=== PATIENT | male | born 1950 | race Caucasian/White ===

== ENCOUNTER 2017-08-27 07:15 | Inpatient (IN) ==
[2017-08-27] MEDS ORDERED: Bisacodyl 10 MG Supp RECTAL PRN (09:00)
[2017-08-27] MEDS ORDERED: ceFAZolin 2 GM Premix Inj 2 GM/50 ML PIGGYBACK IV.SIG SCH (09:10)
[2017-08-27] MEDS ORDERED: Chlorhexidine Gluconate 2% 1 Pack (2 Cloths) TOPICAL SCH (09:15)
[2017-08-27] MEDS ORDERED: Metoprolol Tartrate 25 MG Tablet PO SCH (09:15)
[2017-08-27] MEDS ORDERED: Chlorhexidine 4% Topical 120 APPLIC/120 ML Bottle TOPICAL SCH (09:15)
[2017-08-27] MEDS ORDERED: Bupivacaine/Dextrose 0.75% Inj 2 ML Ampul ONE (09:56)
[2017-08-27] MEDS ORDERED: Sodium Chlor 0.9% Inj 500 ML IV.SIG SCH (10:00)
[2017-08-27] MEDS ORDERED: Sodium Chlor 0.9% Inj 40 ML, Bupivacaine Liposo PF 1.3% Inj 20 ML P-ARTICULR SCH ×2 (11:00)
[2017-08-27] MEDS ORDERED: TRANEXAMIC ACID IV.SIG SCH ×2 (11:00→14:00)
[2017-08-27] MEDS ORDERED: SODIUM CHLOR 0.9% IV.SIG SCH ×2 (11:00→14:00)
[2017-08-27] MEDS ORDERED: Sodium Chlor 0.9% Inj 250 ML IV.SIG ONE (12:00)
[2017-08-27] MEDS ORDERED: Phenylephrine/NS 1000 MCG/10ML Syringe IV.PUSH ONE (12:00)
[2017-08-27] MEDS ORDERED: Lidocaine PF 1% Inj 5 ML Syringe INFILTRATN ONE (12:00)
[2017-08-27] MEDS ORDERED: Aluminum/Magnesium/Simethacone Susp 30 ML UDC PO PRN (12:53)
[2017-08-27] MEDS ORDERED: Morphine Inj 4 MG/ML Vial IV.PUSH PRN (12:53)
[2017-08-27] MEDS ORDERED: Tranexamic Acid Inj 0 MG in Sodium Chlor 0.9% Inj 100 ML IV.SIG ONE (12:53)
[2017-08-27] MEDS ORDERED: Acetaminophen 325 MG Tablet PO PRN (12:53)
--- NOTE | 2017-08-27 13:02 | P.OP ---
- Preoperative Diagnosis (1) Primary osteoarthritis of left hip - Postoperative Diagnosis (1) Primary osteoarthritis of left hip Date of procedure: 08/27/17 Procedure: Left total hip arthroplasty using [place] prosthesis Anesthesia: local (Exparel), spinal Surgeon: Donn Jaime MD Jammer Operator: ROSSY Dumont Estimated blood loss (mL): 150 Pathology: none sent Operation and Findings: Indications and Findings: This 66-year-old man has a 3-4 year history of left hip pain progressively worsening over the last year or. His ambulation tolerance is 100 yards. He has difficulty lying on the side. He has difficulty moving the hip. He has difficulty with activities of daily living. He has not responded to conservative measures including anti-inflammatory agents , analgesics, exercises, physical therapy and ambulatory aids. Physical findings showed limited range of motion in his left hip with tenderness on motion. He had an antalgic gait. X-rays showed loss of articular cartilage to [id number] with large osteophytes in the acetabulum and femoral head. There is eburnation. There is large prominence on the lateral aspect of the femoral head consistent with femoral acetabular impingement. Operative findings: There was severe osteoarthritis in the left hip with loss of articular cartilage to [id number], flattening of the femoral head, eburnation in the femur and acetabulum and significant osteophytes in both. Implants: The acetabular component was a 52 mm outer diameter Tritanium cluster shell with a 0 X3 polyethylene, 36 mm inner diameter liner. The femoral component was an Accolade 2 size 4 x 127 neck angle. The femoral head was Biolox Delta size 36 mm outer diameter by -5 mm neck length. The patient was brought to the clean air operating suite and a spinal anesthetic was administered. The patient was positioned into a lateral position with the operative hip up on a [employer]et lateral positioner. The hip and lower extremity were prepped with alcohol, Hibiclens and ChloraPrep and draped in the usual manner with the hip draped free. Patient received prophylactic antibiotics preoperatively. The patient also received tranexamic acid preoperatively. An appropriate timeout procedure was carried out. An incision was made from the midportion of the greater trochanter proximally and posteriorly paralleling the fibers of the gluteus anahi. The incision was deepened through subcutaneous tissues down to the fascia lexii and gluteus fascia. The gluteus fascia was then split longitudinally in line with its fibers up to the upper portion of the fascia lexii. With wound towels in place, the Charnley retractor was inserted. The sciatic nerve was identified and protected throughout the procedure. Dissection was then carried down to the interval between the gluteus minimus and the piriformis. A retractor was inserted. The piriformis and obturator conjoined tendon was released from the greater trochanter and reflected off the capsule. A capsulotomy was made longitudinally along the femoral neck to the base of the femoral neck and then curved distally along the posterior aspect of the greater trochanter. The hip was internally rotated. Further release of the external rotators was carried out exposing the hip. The hip was dislocated. The femoral neck was transected at the appropriate level using the oscillating saw placement of appropriate retractors. The femoral head was removed. Preparation of the femur was initiated with a box osteotome followed by a curet to identify the medullary canal. Broaching was then initiated with the size 0 broach and went in 1 size increments up to size 4. The broach handle was removed. The femoral neck was then trimmed with a calcar planar. Attention was then directed to the acetabulum. Soft tissues were debrided from the acetabulum. Retractors were placed about the acetabulum. Reaming was then initiated with the 45 millimeter reamer and went in 1-2 mm increments up to the 52 millimeter diameter reamer. A trial reduction with the 50 to millimeter trial prosthesis was carried out. When this was deemed to be appropriate, the trial prosthesis was removed. The acetabulum was irrigated and cleaned. The actual prosthesis as noted above was impacted into place and seated appropriately. Drill holes were made and sounded. Appropriate sized screws were inserted to stabilize the acetabulum further. The liner as noted above was inserted into the acetabular shell and impacted into place. Osteophytes were trimmed from the acetabulum. Local anesthetic was administered throughout the area of the acetabulum and anterior aspect of the femur. The trial neck was placed on the broach for the above-noted prosthesis. The femoral head trial was placed onto the femoral neck . A trial reduction was carried out. Adjustment was made as needed. The stability, leg length and motion were excellent. There was no pistoning. The trial prosthesis was removed. The broach was removed. The femoral component was impacted into the medullary canal of the femur after irrigation and suctioning. When this was appropriately seated a trial reduction was again carried out with the trial prosthesis. There was no pistoning. The leg length was appropriate. The stability and motion were excellent. The trial prosthesis was then removed. After cleaning and drying the trunion of the femoral component, the above-noted femoral head was impacted onto the trunnion. The hip was reduced. The stability and mobility were again checked along with leg lengths as noted above. The hip was positioned appropriately and closure commenced after the remainder of the local anesthetic was injected throughout the hip. The external rotators and capsule were repaired with #1 Vicryl interrupted transosseous sutures with a Krakw technique to reattach the external rotators and capsule to the posterior aspect of the greater trochanter. The capsule itself on the superior aspect was closed with #1 Vicryl interrupted [id number] sutures. The sciatic nerve was inspected. The fascia lexii and gluteus fascia were repaired with #1 Vicryl interrupted [id number] sutures. The subcutaneous tissues were closed with 2-0 Vicryl interrupted simple sutures with buried knots. The skin was closed with a continuous subcuticular closure of 4-0 Monocryl. The wound was then approximated with Dermabond Prineo. A dry sterile dressing was applied to the hip. A knee immobilizer was applied to the leg. The patient was transferred from the operating room to the recovery room in satisfactory condition having tolerated the procedure well. Counts are correct. Specimens: None. Estimated blood loss: 150 mL
--- NOTE | 2017-08-27 13:05 | P.DCO ---
- Physical Therapy Physical Therapy: Gait training Hip: Total hip, Protocol: Left, Posterior hip precautions, Progress to weight bearing Canvas Knee Splint: When in bed with 2 pillows between thighs Left Lower Extremity Weight Bearing: Weight bearing as tolerated Left Lower Extremity Range of Motion: Active ROM - Nursing Nursing: Dressing changes Dressing changes: Daily dressing change, Coverderm/Primapore Additional instructions: Do not remove Dermabond Prineo. - Certification Need for Home Health services: I have seen patient Titus Richmond on 08/27/17. My clinical findings support the need for the requested home health care services because: Need for Home Health Services: Limited ability to care for self, High risk of falls Homebound Certification: I certify that my clinical findings support that this patient is homebound because: Homebound Certification: Post-op weakness, Unsteady gait/balance, Unsafe to leave home unassisted
[2017-08-27] MEDS ORDERED: Post-op Orders (for Pharmacy) OTHER STA (13:17)
--- NOTE | 2017-08-27 15:14 | XR ---
EXAM DATE: 08/27/2017 1:57 PM EDT AGE/SEX: 66 years / Male INDICATIONS: Post-op total left hip arthroplasty. CLINICAL DATA: This is the patient's initial encounter. Patient reports that signs and symptoms have been present for 1 day and indicates a pain score of 2/10. MEDICAL/SURGICAL HISTORY: None. Discectomy, lumbar. COMPARISON: POI, XR HIP AP AND LAT, LEFT, 06/05/2017. . FINDINGS: The patient is status post left total knee arthroplasty with prosthesis in good position. No acute fr acture or dislocation is noted. Mild degenerative changes and scoliosis of the lower lumbar spine are noted. CONCLUSION: 1. Status post left total knee arthroplasty with prosthesis in good position. 2. Mild degenerative changes and scoliosis of the lumbar spine. Electronically signed by: Herbert Garnett MD 08/27/2017 3:12 PM EDT
[2017-08-27] MEDS ORDERED: *morphine SULFATE 4 MG/ML PERIprocedure ONLY ONE (15:40)
[2017-08-27] MEDS: Ketorolac Inj 30 MG/ML (IVP) Vial IV.PUSH SCH ×2 (15:46→21:10)
--- NOTE | 2017-08-27 16:39 | P.CONIM ---
History of Present Illness Service: Orthopedic surgery Consult date: 08/27/17 Primary Care Provider: Dev Holly MD Family Provider: Dev Holly MD Chief Complaint: Medical management History of Present Illness: Mr. Richmond is a 66 yo M patient of Dr. Jaime with PMH of osteoarthritis, hyperthyroidism, and B12 deficiency who underwent L total hip arthroscopy today. Internal medicine consulted for medical management post-operatively. Patient states that he is doing well post-operatively. He denies excessive pain. No chest pain, shortness of breath, nausea/vomiting, or abdominal pain reported. Per nursing staff at bedside, no current concerns. Patient states that prior to surgery he was doing well without fever/chills, cough, abnormal urination, or other concerns. He states that he does have occasional palpitations chronically at home. No known history of arrhythmia. Patient states that he takes beta-sergio and thyroid medication [Metoprolol and Methimazole per EMR] for hyperthyroidism and B12 shots monthly but is otherwise healthy. He states He reports distant surgical history of discectomy. Patient reports prior smoking (quit 4 years ago) but denies history of Pulmonary disease. Patient does not report any familial or personal clotting disorder history. Review of Systems All other systems reviewed negative except as stated in HPI Constitutional: Denies fatigue, Denies headache(s) Eyes: Denies blurry vision, Denies pain Cardiovascular: Denies chest pain, Denies excessive sweating Respiratory: Denies shortness of breath, Denies wheezing Gastrointestinal: Denies abdominal pain, Denies constipation Musculoskeletal: Denies abnormal walking, Denies body aches Neurologic: Denies localized weakness, Denies tingling/numbness/burning sensations PMFSH - History History Provided By: Patient, Significant Other - Medical History Medical History: Medical History (Last Updated 08/27/17 @ 08:08 by Candy Green) Right inguinal hernia High cholesterol Hyperthyroidism Pain in left hip Pain in left knee Wears glasses - Surgical History Surgical History: Surgical History (Last Updated 08/27/17 @ 08:08 by Candy Green) Hx of laminectomy Hx of left inguinal hernia repair Hx of tonsillectomy - Tobacco History Smoking Status: Former smoker - Alcohol History How Often Do You Have a Drink Containing Alcohol: Monthly or less - Substance Use History Substance History: No History of Abuse - Travel History Recent Travel in the [facility] Within the Last 8 Weeks: No Recent Travel Out of the Country Within the Last 8 Weeks: No Medications and Allergies Active Medications: Active Medications Acetaminophen (Tylenol) 650 mg PO Q6H PRN PRN Reason: Pain Less Than 3 On Scale Hydrocodone Bitart/Acetaminophen ([place] 7.5/325) 1 tab PO Q4H PRN PRN Reason: PAIN SCALE 4 TO 6 MODERATE Hydrocodone Bitart/Acetaminophen ([place] 7.5/325) 2 tab PO Q6H PRN PRN Reason: PAIN SCALE 7 TO 10 SEVERE Al Hydrox/Mg Hydrox/Simethicone (Mag-Al Plus Susp Liq) 30 ml PO Q6H PRN PRN Reason: INDIGESTION Al Hydroxide/Mg Hydroxide (Milk Of Magnesia Liq) 30 ml PO BID PRN PRN Reason: Mild Constipation Aspirin (Aspirin Chew) 81 mg PO BID KIM Bisacodyl (Dulcolax Supp) 10 mg RECTAL DAILY PRN PRN Reason: SEVERE CONSITIPATION Chlorhexidine Gluconate (Chlorhexidine 2% Cloth) 3 pack TOPICAL ANIMAL SCIENTIST [facility] Stop: 08/30/17 09:02 Last Admin: 08/27/17 07:30 Dose: 3 pack Chlorhexidine Gluconate (Hibiclens 4% Topical) 1 applicatio TOPICAL ONCE [facility] Stop: 08/31/17 09:14 Last Admin: 08/27/17 07:45 Dose: 1 applicatio Sodium Chloride 40 ml/ (Bupivacaine Liposome 20 ml) 0 ml P-ARTICULR ONCE [facility] Stop: 08/27/17 17:00 Last Admin: 08/27/17 10:47 Dose: 1 bag Cyanocobalamin (Vitamin B12 Inj) 1,000 mcg IM Q30D [facility] Diphenhydramine HCl (Benadryl) 25 mg PO Q6H PRN PRN Reason: ITCHING Lactated Ringer's (Lr 1000 Ml Inj) 1,000 mls @ 30 mls/hr IV.SIG .Q24H [facility] Stop: 08/30/17 09:02 Last Admin: 08/27/17 08:00 Dose: 30 mls/hr Sodium Chloride (Ns Inj) 500 mls @ 30 mls/hr IV.SIG .Q10H [facility] Stop: 08/30/17 09:02 Cefazolin Sodium/Dextrose (Ancef 2 Gm Premix Inj) 2 gm in 50 mls @ 100 mls/hr IV.SIG ANIMAL SCIENTIST [facility] Stop: 08/31/17 09:09 Last Infusion: 08/27/17 11:17 Dose: Infused Tranexamic Acid 754 mg/ Sodium (Chloride) 107.54 mls @ 200 mls/hr IV.SIG ONCE [facility] Stop: 08/27/17 19:59 Last Admin: 08/27/17 14:06 Dose: 200 mls/hr Tranexamic Acid 754 mg/ Sodium (Chloride) 107.54 mls @ 200 mls/hr IV.SIG ONCE [facility] Stop: 08/27/17 16:59 Last Infusion: 08/27/17 11:20 Dose: Infused Cefazolin Sodium/Dextrose (Ancef 2 Gm Premix Inj) 2 gm in 50 mls @ 100 mls/hr IV.SIG Q6H [facility] Stop: 08/28/17 05:29 Lactated Ringer's (Lr 1000 Ml Inj) 1,000 mls @ 80 mls/hr IV.CONT .[id number] [facility] Last Admin: 08/27/17 13:49 Dose: 80 mls/hr Ketorolac Tromethamine (Toradol Inj) 15 mg IV.PUSH Q6H [facility] Stop: 08/29/17 09:01 Last Admin: 08/27/17 15:46 Dose: 15 mg Lactulose (Lactulose Liq) 30 ml PO DAILY PRN PRN Reason: SEVERE CONSITIPATION Methimazole (Tapazole) 5 mg PO DAILY [facility] Metoprolol Tartrate (Lopressor) 25 mg PO ANIMAL SCIENTIST [facility] Stop: 08/30/17 09:02 Last Admin: 08/27/17 10:11 Dose: Not Given Metoprolol Tartrate (Lopressor) 25 mg PO BID [facility] Miscellaneous Information ([facility] Nursing Information) 1 each OTHER UNSCH PRN PRN Reason: SEE LABEL COMMENTS Stop: 08/28/17 13:13 Morphine Sulfate (Morphine Inj) 2 mg IV.PUSH Q3H PRN PRN Reason: BREAKTHROUGH PAIN Ondansetron HCl (Zofran Odt) 4 mg PO Q6H PRN PRN Reason: NAUSEA OR VOMITING Povidone Iodine (Betadine 5% Antisepsis Kit) 1 applicatio EACH NARE ANIMAL SCIENTIST [facility] Stop: 08/30/17 09:02 Last Admin: 08/27/17 08:00 Dose: 1 applicatio Pravastatin Sodium (Pravachol) 40 mg PO DAILY [facility] Senna/Docusate Sodium (Deepali-Colace) 1 tab PO BID [facility] Sennosides (Senokot) 17.2 mg PO BID PRN PRN Reason: Moderate Constipation Sodium Chloride (Ns Flush) 2 ml IV.FLUSH BID KIM Sodium Chloride (Ns Flush) 2 ml IV.FLUSH PRN PRN PRN Reason: FLUSH AFTER USING IV ACCESS Zolpidem Tartrate (Ambien) 5 mg PO HS PRN PRN Reason: INSOMNIA Allergies Allergy/AdvReac Type Severity Reaction Status Date / Time No Known Allergies Allergy Verified 08/27/17 08:55 Home Medications Medication Instructions Recorded Confirmed Type cyanocobalamin (vitamin B-12) 1,000 mcg IM QMONTH 08/16/17 08/27/17 History ibuprofen [Advil] 400 mg PO TID PRN 08/16/17 08/27/17 History methimazole 5 mg PO DAILY 08/16/17 08/27/17 History metoprolol tartrate 25 mg PO BID 08/16/17 08/27/17 History simvastatin 20 mg PO DAILY 08/16/17 08/27/17 History Exam Vital signs: Vital Signs 08/27/17 08:13 08/27/17 13:12 Temperature 99.1 F 96 F L Pulse Rate 62 62 Respiratory Rate 20 12 Blood Pressure 114/61 102/59 L Pulse Oximetry 98 100 Intake & Output 08/26/17 08/27/17 08/27/17 18:59 06:59 18:59 Intake Total 1557.54 / 1557.54 Output Total 150 / 150 Balance 1407.54 / 1407.54 Weight 75.4 kg Intake: IV 157.54 / 157.54 Cyklokapron Inj 754 MG In NS 107.54 / 107.54 Inj 100 ML @ 200 mls/hr IV.SIG ONCE [facility] Rx#:[id number] Ancef 2 GM Premix Inj 2 gm In 50 / 50 50 ml @ 100 mls/hr IV.SIG ANIMAL SCIENTIST [facility] Rx#:[id number] Anesthesia Amount 1400 / 1400 Output: Estimated Blood Loss 150 / 150 Other: Weight On Admission 75.4 kg Narrative: Gen: No acute distress HEENT: Eyes- EOMI. Mouth- normal mucus membranes Neck: No appreciated thyromegaly or lymphadenopathy CV: regular rate and rhythm; normal perfusion peripherally Pulm: CTAB; normal rate Abd: Soft, nontender Ext: Grossly normal ROM and strength of upper extremities; lower extremities not assessed for mobility due to recent surgery. No calf tenderness or asymmetry Neuro: grossly normal CN; grossly normal peripheral motor/sensory function Results - Labs Labs: Laboratory Results - last 24 hr 08/27/17 08:08 Blood Type A Negative Blood Type Recheck Required Antibody Screen Negative - Imaging Impressions Hip X-Ray 08/27/17 12:48 CONCLUSION: 1. Status post left total knee arthroplasty with prosthesis in good position. 2. Mild degenerative changes and scoliosis of the lumbar spine. Assessment and Plan - Plan Mr. Richmond is a 66 yo M with PMH hyperthyroidism and hyperlipidemia who is POD0 from left hip replacement per Dr. Jaime today: s/p left hip replacement Impression: patient doing well at this time -Post-op care per Dr. Jaime -OT/PT consulted- wheeled walker and HHC recommended -Will consult case management for HHC/wheeled walker assistance -DVT ppx-SCD's; chemical PPX >24hrs post-op -Regular diet, bowel regimemn -Will check post op Hgb/Hct and chemistry on IVF -Will give incentive spirometry -Pain control -PRN Morphine 2mg q3 for BRKP -Toradol 15mg IV q6hs scheduled -PRN [place] pain scale (7.5/15mg) PMH of thyroid disorder -Will continue home Methimazole -Will continue home Metoprolol Hyperlipidemia -Continue home statin, aspirin Reported palpitations at home -Will continue telemetry post-operatively DVT PPX SCD's as above <24hrs post op Code Status: Full
[2017-08-27] MEDS: ceFAZolin 2 GM Premix Inj 2 GM/50 ML PIGGYBACK IV.SIG SCH ×2 (16:55→22:42)
[2017-08-27] MEDS ORDERED: Zolpidem Tartrate 5 MG Tablet PO PRN (21:00)
[2017-08-27] MEDS: Metoprolol Tartrate 25 MG Tablet PO SCH (22:40)
[2017-08-27] MEDS: Senna/Docusate Sodium 8.6/50 MG Tablet PO SCH (22:40)
[2017-08-28] MEDS: Ketorolac Inj 30 MG/ML (IVP) Vial IV.PUSH SCH ×2 (03:43→09:13)
[2017-08-28] MEDS: ceFAZolin 2 GM Premix Inj 2 GM/50 ML PIGGYBACK IV.SIG SCH (04:05)
[2017-08-28 05:56] LABS: Baso % (Auto) 0.1 % (0.0-2.0); Hematocrit 33.5 % (39.0-51.0); Hemoglobin 11.8 gm/dL (13.0-17.0); Lymph % (Auto) 8.4 % (9.0-44.0); Mean Corpuscular HGB Conc 35.2 % (32.0-36.0); Mean Corpuscular Hemoglobin 30.1 pg (27.0-34.0); Mean Corpuscular Volume 85.5 fL (80.0-100.0); Mean Platelet Volume 7.1 fL (7.0-11.0); Mono # (Auto) 1.2 th/mm3 (0.0-0.9); Neut # (Auto) 9.6 th/mm3 (1.8-7.7); Neut % (Auto) 81.5 % (16.0-70.0); Platelet Count 251 th/mm3 (150-450); Red Blood Count 3.92 mil/mm3 (4.50-5.90); White Blood Count 11.8 th/mm3 (4.0-11.0)
[2017-08-28 06:21] LABS: Anion Gap 7 meq/L (5-15); Blood Urea Nitrogen 15 mg/dL (7-18); Calcium 8.2 mg/dL (8.5-10.1); Carbon Dioxide 27.2 meq/L (21.0-32.0); Chloride 108 meq/L (98-107); Glomerular Filtration Rate Greater Than 89 mL/min (>89); Glucose,Random 132 mg/dL (74-106); Potassium 3.9 meq/L (3.5-5.1); Sodium 142 meq/L (136-145)
--- NOTE | 2017-08-28 06:28 | P.PNOP ---
Subjective Interval history: Postop day #1 He is doing well. The had some vertigo when he stood with physical therapy so he did not walk. He was able to stand later with the nurses and tolerated it well. Physical Exam Vital signs: Vital Signs 08/27/17 08:13 08/27/17 13:12 08/27/17 13:15 Temperature 99.1 F 96 F L Pulse Rate 62 62 60 Respiratory Rate 20 12 12 Blood Pressure 114/61 102/59 L 101/50 L Pulse Oximetry 98 100 100 08/27/17 13:30 08/27/17 13:45 08/27/17 14:00 Temperature 96.2 F L Pulse Rate 54 L 54 L 53 L Respiratory Rate 12 12 12 Blood Pressure 94/50 L 94/55 L 96/51 L Pulse Oximetry 100 100 100 08/27/17 14:15 08/27/17 14:30 08/27/17 14:45 Temperature Pulse Rate 53 L 57 L 56 L Respiratory Rate 12 12 12 Blood Pressure 96/51 L 97/54 L 86/51 L Pulse Oximetry 100 99 100 08/27/17 15:00 08/27/17 15:15 08/27/17 15:30 Temperature 96.9 F L 97 F L Pulse Rate 62 63 67 Respiratory Rate 16 17 14 Blood Pressure 105/59 L 99/56 L 103/55 L Pulse Oximetry 97 96 95 08/27/17 16:00 08/27/17 17:00 08/27/17 18:00 Temperature 98 F Pulse Rate 73 86 84 Respiratory Rate 13 18 18 Blood Pressure 101/57 L 116/61 100/57 L Pulse Oximetry 96 96 96 08/27/17 21:40 08/27/17 22:30 08/27/17 22:45 Temperature 97.8 F Pulse Rate 77 85 Respiratory Rate 18 Blood Pressure 121/65 Pulse Oximetry 96 96 Intake & Output 08/27/17 08/27/17 08/28/17 06:59 18:59 06:59 Intake Total 1847.54 / 1847.54 1050 / 1050 Output Total 675 / 675 Balance 1172.54 / 1172.54 1050 / 1050 Weight 75.4 kg 75.4 kg Intake: IV 207.54 / 207.54 1050 / 1050 LR 1000 mL Inj 1,000 ML @ 80 1000 / 1000 mls/hr IV.CONT .[id number] KIM Rx# :[id number] Cyklokapron Inj 754 MG In NS 107.54 / 107.54 Inj 100 ML @ 200 mls/hr IV.SIG ONCE KIM Rx#:[id number] Ancef 2 GM Premix Inj 2 gm In 100 / 100 50 / 50 50 ml @ 100 mls/hr IV.SIG Q6H KIM Rx#:[id number] Oral 240 / 240 Anesthesia Amount 1400 / 1400 Output: Urine 525 / 525 Estimated Blood Loss 150 / 150 Other: Date of Last Bowel Movement 08/27/17 Weight On Admission 75.4 kg Narrative: He is resting comfortably, supine in bed. The neurovascular status is intact. The dressing is dry. Results - Labs CBC & Chem 7: 08/28/17 04:34 08/28/17 04:34 Laboratory Results - last 24 hr 08/27/17 08/28/17 08/28/17 08:08 04:34 04:34 WBC 11.8 H RBC 3.92 L Hgb 11.8 L Hct 33.5 L MCV 85.5 MCH 30.1 MCHC 35.2 RDW 13.0 Plt Count 251 MPV 7.1 Neut % (Auto) 81.5 H Lymph % (Auto) 8.4 L [place] % (Auto) 10.0 H Eos % (Auto) 0.0 Baso % (Auto) 0.1 Neut # (Auto) 9.6 H Lymph # (Auto) 1.0 [place] # (Auto) 1.2 H Eos # (Auto) 0.0 Baso # (Auto) 0.0 WBC Differential . Differential Comment Auto diff final Sodium 142 Potassium 3.9 Chloride 108 H Carbon Dioxide 27.2 Anion Gap 7 BUN 15 Creatinine 0.83 Estimated GFR Greater than 89 Random Glucose 132 H Calcium 8.2 L Blood Type A Negative Blood Type Recheck Required Antibody Screen Negative - Imaging Impressions Hip X-Ray 08/27/17 12:48 CONCLUSION: 1. Status post left total knee arthroplasty with prosthesis in good position. 2. Mild degenerative changes and scoliosis of the lumbar spine. Assessment and Plan - Ortho Post Op Day # 1 - Problem List (1) Status post total replacement of left hip Code(s): Z96.642 - Presence of left artificial hip joint Status: Acute Plan: Continue postop care and PT. - Assessment and Plan Condition: Good. Orthopedically stable. DVT prophylaxis: TEDs, aspirin, sequentials. Discharge plans: Home with home health care. An appointment was scheduled through the office. Prescriptions: [place] 7.5/325; Patient is having significant pain caused by a total hip replacement which will last more than 3 days. Trial of Tylenol has not helped. I believe that it is medically necessary to treat patients pain because it is affecting patients ability to participate in postoperative rehabilitation and perform activities of daily living in a comfortable and efficient manner.
[2017-08-28] MEDS ORDERED: methIMAzole 5 MG Tablet PO SCH (09:00)
[2017-08-28] MEDS: Metoprolol Tartrate 25 MG Tablet PO SCH (09:13)
[2017-08-28] MEDS: Senna/Docusate Sodium 8.6/50 MG Tablet PO SCH (09:13)
--- NOTE | 2017-08-28 10:25 | P.PNIM ---
Subjective Interval history: Mr. Richmond was afebrile with stable VS overnight. Patient seen at conclusion of PT visit today; patient has been doing well and has no longer been lightheaded when standing. Patient breathing well and using incentive spirometry. Patient has been passing gas but not yet had a bowel movement. Patient with normal appetite. Patient accompanied by ; he desires to go home today after PT/Ortho class this afternoon. Physical Exam Vital signs: Vital Signs 08/27/17 13:12 08/27/17 13:15 08/27/17 13:30 Temperature 96 F L Pulse Rate 62 60 54 L Respiratory Rate 12 12 12 Blood Pressure 102/59 L 101/50 L 94/50 L Pulse Oximetry 100 100 100 08/27/17 13:45 08/27/17 14:00 08/27/17 14:15 Temperature 96.2 F L Pulse Rate 54 L 53 L 53 L Respiratory Rate 12 12 12 Blood Pressure 94/55 L 96/51 L 96/51 L Pulse Oximetry 100 100 100 08/27/17 14:30 08/27/17 14:45 08/27/17 15:00 Temperature Pulse Rate 57 L 56 L 62 Respiratory Rate 12 12 16 Blood Pressure 97/54 L 86/51 L 105/59 L Pulse Oximetry 99 100 97 08/27/17 15:15 08/27/17 15:30 08/27/17 16:00 Temperature 96.9 F L 97 F L 98 F Pulse Rate 63 67 73 Respiratory Rate 17 14 13 Blood Pressure 99/56 L 103/55 L 101/57 L Pulse Oximetry 96 95 96 08/27/17 17:00 08/27/17 18:00 08/27/17 21:40 Temperature Pulse Rate 86 84 Respiratory Rate 18 18 Blood Pressure 116/61 100/57 L Pulse Oximetry 96 96 96 08/27/17 22:30 08/27/17 22:45 08/28/17 03:38 Temperature 97.8 F 98.2 F Pulse Rate 77 85 68 Respiratory Rate 18 18 Blood Pressure 121/65 118/59 L Pulse Oximetry 96 95 08/28/17 07:18 08/28/17 08:00 Temperature 99.4 F Pulse Rate 71 86 Respiratory Rate 18 Blood Pressure 114/59 L Pulse Oximetry 97 Intake & Output 08/27/17 08/28/17 08/28/17 18:59 06:59 18:59 Intake Total 1847.54 / 1847.54 1530 / 1530 Output Total 675 / 675 500 / 500 Balance 1172.54 / 1172.54 1030 / 1030 Weight 75.4 kg 75.4 kg Intake: IV 207.54 / 207.54 1050 / 1050 LR 1000 mL Inj 1,000 ML @ 80 1000 / 1000 mls/hr IV.CONT .[id number] KIM Rx# :[id number] Cyklokapron Inj 754 MG In NS 107.54 / 107.54 Inj 100 ML @ 200 mls/hr IV.SIG ONCE KIM Rx#:[id number] Ancef 2 GM Premix Inj 2 gm In 100 / 100 50 / 50 50 ml @ 100 mls/hr IV.SIG Q6H KIM Rx#:[id number] Oral 240 / 240 480 / 480 Anesthesia Amount 1400 / 1400 Output: Urine 525 / 525 500 / 500 Estimated Blood Loss 150 / 150 Other: Date of Last Bowel Movement 08/27/17 08/27/17 # Bowel Movements 0 Weight On Admission 75.4 kg Narrative: Gen: No acute distress, sitting in bedside chair HEENT: Eyes- EOMI. Mouth- normal mucus membranes Neck: No appreciated thyromegaly or lymphadenopathy CV: regular rate and rhythm; normal perfusion peripherally Pulm: CTAB; normal rate. Did well with incentive spirometry Abd: Soft, nontender Ext: Grossly normal ROM and strength of upper extremities. No calf tenderness or asymmetry Neuro: grossly normal CN; grossly normal peripheral motor/sensory function Results - Labs CBC & Chem 7: 08/28/17 04:34 08/28/17 04:34 Laboratory Results - last 24 hr 08/28/17 08/28/17 04:34 04:34 WBC 11.8 H RBC 3.92 L Hgb 11.8 L Hct 33.5 L MCV 85.5 MCH 30.1 MCHC 35.2 RDW 13.0 Plt Count 251 MPV 7.1 Neut % (Auto) 81.5 H Lymph % (Auto) 8.4 L [place] % (Auto) 10.0 H Eos % (Auto) 0.0 Baso % (Auto) 0.1 Neut # (Auto) 9.6 H Lymph # (Auto) 1.0 [place] # (Auto) 1.2 H Eos # (Auto) 0.0 Baso # (Auto) 0.0 WBC Differential . Differential Comment Auto diff final Sodium 142 Potassium 3.9 Chloride 108 H Carbon Dioxide 27.2 Anion Gap 7 BUN 15 Creatinine 0.83 Estimated GFR Greater than 89 Random Glucose 132 H Calcium 8.2 L - Imaging Impressions Hip X-Ray 08/27/17 12:48 CONCLUSION: 1. Status post left total knee arthroplasty with prosthesis in good position. 2. Mild degenerative changes and scoliosis of the lumbar spine. Assessment and Plan - Plan Mr. Richmond is a 66 yo M with PMH hyperthyroidism and hyperlipidemia who is POD1 from left hip replacement per Dr. Jaime: s/p left hip replacement Impression: patient doing well at this time. Labs: CBC- Hgb 11.8 post-operatively. Mild leukocytosis (11.8) suspected reactive from surgery. BMP with mild hyperglycemia (glucose 132); otherwise unremarkable -Post-op care per Dr. Jaime -OT/PT consulted- wheeled walker and C recommended -DVT ppx-SCD's; TEDs, ASA at discharge (restarted today) -Regular diet -Will give incentive spirometry -Pain control -[place] at discharge -f/u with Dr. Jaime H of thyroid disorder -Will continue home Methimazole -Will continue home Metoprolol Hyperlipidemia -Continue home statin, aspirin Code Status: Full code Discharge Planning: Plan for discharge this afternoon and f/u with PCP and Dr. Jaime
--- NOTE | 2017-08-29 07:46 | P.DS ---
Date of admission: 08/27/17 07:15 Primary care physician: Dev Holly MD Attending physician on discharge: Donn Jaime Anticipated date of discharge: 08/28/17 Brief History from admission: This 66-year-old man had long-standing arthritis in his left hip that was nonresponsive to conservative measures as detailed in history and physical examination. Physical findings showed limited range of motion with crepitation on motion and painful motion. He had an antalgic gait. X-rays showed loss of articular cartilage to [id number] with large acetabular and femoral head osteophytes and changes consistent with femoral acetabular impingement. DS: Diagnosis - Discharge Diagnosis (1) Status post total replacement of left hip Status: Acute (2) Primary osteoarthritis of left hip Status: Resolved DS: Medications - Discharge Medications Prescriptions: hydrocodone-acetaminophen 1 tab PO Q4H PRN 7 Days #42 tab PRN Reason: Pain DS: Summary Hospital Course: The patient was admitted as noted above. The above noted operative procedure was carried out that day. Preoperatively prophylactic antibiotics were administered Ancef according to protocol. These were continued postoperatively. The patient also received tranexamic acid to help with hemostasis according to protocol. In the postanesthesia care unit mechanical methods of DVT prophylaxis in the form of RADHA stockings and sequentials were initiated. Physical therapy was initiated on the day of surgery. On postoperative day #1 physical therapy continued. DVT prophylaxis with aspirin was initiated at this time. The patient continued physical therapy throughout the hospitalization. The distance walked and range of motion improved throughout the hospitalization. The patient was discharged on postoperative day 1 with the disposition being to home with home health care. An appointment for follow-up was made prior to admission. - Time Spent with Patient Total time spent providing and/or coordinating discharge services: - Quality: VTE Deep Vein Thrombosis/Pulmonary Embolism Present on Admission: No Exam Vital signs: Vital Signs 08/28/17 08:00 08/28/17 09:43 08/28/17 12:00 Temperature 99.4 F 99.3 F Pulse Rate 86 70 Respiratory Rate 18 18 18 Blood Pressure 114/59 L 115/69 Pulse Oximetry 97 99 Intake & Output 08/28/17 08/29/17 08/29/17 18:59 06:59 18:59 Other: Date of Last Bowel Movement 08/27/17 Narrative: He was resting comfortably, supine in bed. The dressing is dry and intact. The neurovascular status is intact. Results Procedures completed during hospitalization: Left total hip arthroplasty using [place] prosthesis on 08/27/2017 Completed studies during hospitalization: Abnormal Labs 08/28/17 08/28/17 04:34 04:34 WBC 11.8 H RBC 3.92 L Hgb 11.8 L Hct 33.5 L Neut % (Auto) 81.5 H Lymph % (Auto) 8.4 L [place] % (Auto) 10.0 H Neut # (Auto) 9.6 H [place] # (Auto) 1.2 H Chloride 108 H Random Glucose 132 H Calcium 8.2 L Labs on day of discharge: Abnormal Labs 08/28/17 08/28/17 04:34 04:34 WBC 11.8 H RBC 3.92 L Hgb 11.8 L Hct 33.5 L Neut % (Auto) 81.5 H Lymph % (Auto) 8.4 L [place] % (Auto) 10.0 H Neut # (Auto) 9.6 H [place] # (Auto) 1.2 H Chloride 108 H Random Glucose 132 H Calcium 8.2 L - Impressions ITS Impressions Hip X-Ray 08/27/17 12:48 CONCLUSION: 1. Status post left total knee arthroplasty with prosthesis in good position. 2. Mild degenerative changes and scoliosis of the lumbar spine. Discharge Plan - Discharge Disposition Patient Disposition: /Home Health Service - Discharge Condition Condition: Stable - Discharge Order Discharge Orders: Discharge Order (Routine); Ordered 08/28/17 Ordered By: Donn Jaime - Discharge Details Anticipated Discharge Date: 08/28/17 - Physicians Team Primary Care Provider: Dev Holly Attending Provider: Donn Jaime Other Providers: Kana Peña MD ; [facility], ; [facility] - Rxs /Orders / Referrals /Forms Prescriptions: New aspirin 81 mg Tablet,Chewable 81 mg PO BID RF: 0 hydrocodone-acetaminophen 7.5-325 mg Tablet 1 tab PO Q4H PRN (Reason: Pain) 7 Days Qty: 42 RF: 0 Continue cyanocobalamin (vitamin B-12) 1,000 mcg/mL Kit 1,000 mcg IM QMONTH ibuprofen [Advil] 200 mg Tablet 400 mg PO TID PRN (Reason: Pain) methimazole 5 mg Tablet 5 mg PO DAILY metoprolol tartrate 25 mg Tablet 25 mg PO BID simvastatin 20 mg Tablet 20 mg PO DAILY Referrals: Donn Jaime MD [Physician] - See Instructions Dev Holly MD [Primary Care Provider] - See Instructions (Please follow up with PCP in ~2 weeks) - Discharge Instructions Additional Instructions: RX'S SENT AT TIME OF DISCHARGE. FOLLOW UP WITH YOUR PRIMARY CARE PROVIDER IN 3-4 DAYS. FOLLOW UP WITH YOUR ORTHOPEDIC SURGEON SCHEDULED. IF YOU NEED TO RESCHEDULE, CALL THE ORTHOPEDIC OFFICE. IF YOU HAVE ANY QUESTIONS OR CONCERNS, PLEASE CALL THE OFFICE. REPORT ANY SIGNS AND SYMPTOMS OF INFECTION TO YOUR PROVIDER IMMEDIATELY. - Post Discharge Care Plan Care Plan Goals: Discharge Care Plan Goals for Total Hip Replacement You had a hip replacement surgery. This means your natural hip was replaced with an artificial joint (prosthesis). You may be recovering at home or in a rehabilitation facility. Either way, you must take care of your new hip. Here are some goals to help you heal well. Directions to Meet your Goals: 1. Activity & Exercises: * Take pain medicine as directed by your doctor. * Dont drive until your doctor says its OK. And never drive while taking opioid pain medicine. * Wear the support stockings you were given in the hospital as directed by your surgeon. * Dont sit for more than 30 to 45 minutes at one time. * Dont lean forward while sitting. * Dont cross your legs. * Keep your feet flat on the floor. Dont turn your foot or leg inward. This stresses your hip joint. * Use an elevated toilet seat for 6 weeks after surgery. * Nap if you are tired, but dont stay in bed all day. * Sit on a firm cushion when you ride in a car and avoid sitting too low. Try not to bend your hip too much when getting in and out of the car. 2. Prevent Falls/Injury: * Follow your doctors orders regarding how much weight to put on the affected leg. * Dont bend at the hip when you bend over. Don't bend at the waist to put on socks and shoes. And avoid picking up items from the floor. * Use a cane, crutches, a walker, or handrails until your balance, flexibility, and strength improve. And remember to ask for help from others when you need it. * Free up your hands so that you can use them to keep balance. Use a ramiro pack , apron, or pockets to carry things. * Arrange your household to keep the items you need handy. Keep everything else out of the way. * Remove items that may cause you to fall, such as throw rugs and electrical cords. * Use nonslip bath mats, grab bars, an elevated toilet seat, and a shower chair in your bathroom * Sit on a shower stool or chair when you shower to keep from falling. 3. Precautions: * Prevent infection. Any infection will need to be treated immediately. Call your doctor right away if you think you might have an infection. * Tell your dentist that you have an artificial joint and take antibiotics as prescribed before any dental work. * Tell all your healthcare providers about your artificial joint before any medical procedure. * Maintain a healthy weight. Get help to lose any extra pounds. Added body weight puts stress on the joints. 4. Incision Care: * Prevent infection by washing your hands often. If an infection occurs, it will need to be treated right away. * Call your doctor right away if you think you may have an infection. Symptoms include a fever or an incision that leaks white, green, or yellow fluid. * Don't soak your incision in water until your doctor says its OK. This means no hot tubs, bathtubs, or swimming pools. * Follow your doctor's instructions for changing the dressing. * Dont rub the incision, or apply creams or lotions to it. * If you notice any redness or drainage around the bandage site, contact your surgeon's office immediately. 5. Follow-Up: Do Not miss your follow-up appointment. Keep up with all your appointments and yearly check ups When to call your doctor: Call your doctor right away if you have: Hip pain gets worse Pain or swelling in your calf or leg not related to your incision Tenderness or redness in your calf Fever of 100.4F (38C) or higher, or as directed by your healthcare provider Shaking chills Swelling or redness at the incision site gets worse Fluid draining from the incision Call 911: Call 911 right away if you have: Chest pain Shortness of breath Any pain or tenderness in your calf
== END 2017-08-28 14:34 | disposition home health service (06) ==
LOC: HSDI 07:15 → N06 21:42
PROVIDERS: ADMIT Orthopaedic Surgery; ATTEND Orthopaedic Surgery